=== PATIENT | female | born 1995 | race Caucasian/White ===

== ENCOUNTER → 2018-07-06 10:37 | Outpatient (CLI) | payer MEDICAID, SELFPAY ==
--- NOTE | 2018-07-06 10:41 | US_ITS ---
US soft tissue head and neck Ordering Physician: Kalie Hall Patient Age: 22 years: Female HISTORY: ITS.REASON: LYPHAMDENOPATHY Palpable area under chin. Patient states it has decreased in size since she may appointment for the ultrasound. TECHNIQUE limited focused: Ultrasound submental region of neck COMPARISON :None. FINDINGS The palpable area beneath the chin, submental region correlates with a is a small elongated lymph node appearing structure measuring 1.1 cm length x 0.3 cm. Only very subtle fatty hilum. Color Doppler however shows more normal flow centrally. This is most compatible with a small elongated benign submental lymph node.Well-defined margins. Understand from provided history that this palpable area has decreased in size since initially making appointment... If not this node persist or tenderPatient may benefit from dental evaluation follow-up, as this is a drainage pathway from mouth and Teeth and could reflect inflammation process of such Unremarkable carotid & submandibular glands The submandibular gland is a normal elongated appearance bilaterally. Left submandibular gland = 2.9 cm in length 0.7 cm AP . Right submandibular gland = gland 3.1 x 0.7 cm. Right and left parotid appear satisfactory and unremarkable. No nodules or masses appreciated on limited survey here Scanning through the Right Neck reveals additional scattered small lymph node measuring 5.4 mm. And another] node more inferiorly measuring 9 mm x 5 .3mm. On the left scattered Left Neck lymph nodes more evident. The largest superiorly measuring up to 22 mm x 12 mm labeled left neck lymph node #1. Nonspecific character.. Difficult to confirm a benign fatty hilum on today's submitted images, but I suspect this is due to technique . I would like to view a benign fatty hilum to better confirm its benign character and suggest follow-up ultrasound 3-4 months because of this (Enlarged reactive lymph nodes in the neck are very common in young patient, but would benefit from follow-up and further evaluate. & Would hope to better Exclude any unlikely additional lymphoproliferative process) Lymph node #2 to measuring 10 mm x 4.6 mm maximally. Lymph node#at left neck measuring nearly 10 mm times x 4.5 mm.. Both these demonstrate vague fatty hilum .. ---IMPRESSION The palpable area seems to correspond with a small elongated submental lymph node.Which measures up to 11 mm length x 3 mm.. Benign-appearing node which can be followed. If persistent may warrant dental correlation and follow-up There are other scattered nodes throughout the neck. One of the larger generous size left neck lymph node nodes is seen at the upper left neck measuring nearly 22 mm x 1.2 cm.. This node warrants require follow-up with this current appearance.. It does not demonstrated well-defined benign fatty hilum on today's images. If this persists & If it does not does not decrease in size clinically may need to consider further investigation.. Again in this age patient more likely we are dealing with benign reactive node in this region with this young patient's, but will benefit from follow-up to more significant process. Follow-up neck ultrasound 3 months recommended, particularly if these nodes do not regressed clinically .
== END ==
PROVIDERS: PCP Nurse Practitioner Family; Visit Provider Nurse Practitioner Family
DX: R59.1 Generalized enlarged lymph nodes (principal)
CPT/HCPCS: 76536

== ENCOUNTER → 2019-03-08 10:54 | Outpatient (CLI) | payer MEDICAID, SELFPAY ==
[2019-03-08 15:03] LABS: HCG,Quantitative 12641 mIU/mL
== END ==
PROVIDERS: Visit Provider Obstetrics & Gynecology
DX: Z32.00 Encounter for pregnancy test, result unknown (principal)
CPT/HCPCS: 36415; 84702

== ENCOUNTER → 2019-06-02 09:17 | Outpatient (CLI) | payer OTHER, SELFPAY ==
[2019-06-03 08:13] LABS: Hep A Ab, IgM Negative (Negative); Hepatitis B Core Antibody IgM Negative (Negative); Hepatitis B Surface Antigen Negative (Negative)
[2019-06-03 21:15] LABS: HIV Screen 4th Generation wRfx Non Reactive (Non Reactive); HSV 1 IgG, Type Spec <0.91 index (0.00-0.90); HSV 2 IgG, Type Spec <0.91 index (0.00-0.90); Hepatitis C Antibody <0.1 s/co ratio (0.0-0.9); Rapid Plasma Reagin Ab Titer Non Reactive (NonRea<1:1)
[2019-06-03 21:16] LABS: Neisseria gonorrhoeae, NAA Negative (Negative)
== END ==
PROVIDERS: Visit Provider Nurse Practitioner Family
DX: Z11.3 Encounter for screening for infections with a predominantly sexual mode of transmission (principal)
CPT/HCPCS: 36415; 80074; 86592; 86695; 86703; 86790; 87491; 87591; G0432

== ENCOUNTER 2024-08-11 10:54 | Outpatient (CLI) | payer OTHER, SELFPAY ==
--- NOTE | 2024-08-11 10:59 | US_ITS ---
FINAL REPORT TECHNIQUE: Real-time grayscale and color ultrasound of the thyroid was performed. CLINICAL HISTORY: NODULE COMPARISON: None FINDINGS: The thyroid gland measures 52 x 13 x 14 mm on the right and 45 x 9 x 13 mm on the left. The isthmus measures 2 mm. The parenchyma is unremarkable . Nodules: Single dominant nodule lower pole right lobe measuring 18 x 10 mm, predominantly cystic, TR 3. IMPRESSION: Right TR 3 nodule as described. Follow-up 1 year recommended per TI-RADS criteria. Reviewed, Interpreted and Dictated by Victoriano Kwon MD Transcribed by Benita aGry Authenticated and [facility]
== END 2024-08-11 23:59 | disposition home or self-care (01) ==
LOC: RAD 10:56
PROVIDERS: PCP Nurse Practitioner Family; Visit Provider Nurse Practitioner Family
DX: E04.1 Nontoxic single thyroid nodule (principal)
CPT/HCPCS: 76536